=== PATIENT | male | born 1975 | race American Indian/Alaskan Native ===

== ENCOUNTER 2019-08-02 18:27 | Emergency (ER) | payer OTHER ==
--- NOTE | 2019-08-02 18:44 | EDM.PDOC ---
ED HPI GENERAL MEDICAL PROBLEM - General Stated Complaint: WISDOM TOOTH BOTTOM PAIN Time Seen by Provider: 08/02/19 18:39 Source of Information: Reports: Patient History Limitations: Reports: No Limitations - History of Present Illness INITIAL COMMENTS - FREE TEXT/NARRATIVE: This 44 yo male patient reports to the ED with dental pain that started 3 days ago and has been getting worse. The patient has been taking Tylenol an ibuprofen with little to no relief. The patient has attempted to get into the dentist, but has not been able to get an appointment. Onset Date: 07/31/19 Duration: Constant, Getting Worse Location: Reports: Face Quality: Reports: Ache Severity: Moderate Improves with: Reports: None Worsens with: Reports: None Context: Reports: Other Associated Symptoms: Reports: No Other Symptoms Treatments PAYMENT POSTER: Reports: Acetaminophen, NSAIDS Left Lower Gums Pain Score (Numeric/FACES): 10 - Related Data Allergies Allergy/AdvReac Type Severity Reaction Status Date / Time No Known Allergies Allergy Verified 08/02/19 18:37 Home Meds: Home Meds . [No Known Home Meds] 08/02/19 [History] ED ROS ENT - Review of Systems Review Of Systems: Comprehensive ROS is negative, except as noted in HPI. ED EXAM, ENT - Physical Exam Exam: See Below Exam Limited By: No Limitations General Appearance: Alert, WD/WN, No Apparent Distress Eye Exam: Bilateral Eye: EOMI, Normal Inspection, PERRL Ears: Normal External Exam, Normal Canal, Hearing Grossly Normal, Normal TMs Nose: Normal Inspection, Normal Mucousa, No Blood Mouth/Throat: Dental Abcess, Dental Pain Head: Atraumatic, Normocephalic Neck: Normal Inspection, Supple, Non-Tender, Full Range of Motion Respiratory/Chest: No Respiratory Distress, Lungs Clear, Normal Breath Sounds, No Accessory Muscle Use, Chest Non-Tender Cardiovascular: Normal Peripheral Pulses, Regular Rate, Rhythm, No Edema, No Gallop, No JVD, No Murmur, No Rub GI/Abdominal: Normal Bowel Sounds, Soft, Non-Tender, No Organomegaly, No Distention, No Abnormal Bruit, No Mass (Male) Exam: Deferred Rectal (Males) Exam: Deferred Back: Normal Inspection, Full Range of Motion Extremities: Normal Inspection, Normal Range of Motion, Non-Tender, No Pedal Edema, Normal Capillary Refill Neurological: Alert, Oriented, CN II-XII Intact, Normal Cognition, Normal Gait, Normal Reflexes, No Motor/Sensory Deficits Psychiatric: Normal Affect, Normal Mood Skin: Warm, Dry, Intact, Normal Color, No Rash Lymphatic: No Adenopathy Course - Vital Signs Last Recorded V/S: Last Vital Signs Temp 36.5 C 08/02/19 18:34 Pulse 84 08/02/19 18:34 Resp 16 08/02/19 18:34 BP 144/95 H 08/02/19 18:34 Pulse Ox 98 08/02/19 18:34 Departure - Departure Time of Disposition: 18:44 Disposition: Home, Self-Care 01 Condition: Fair Clinical Impression: Dental abscess - Discharge Information *PRESCRIPTION DRUG MONITORING PROGRAM REVIEWED*: Not Applicable *COPY OF PRESCRIPTION DRUG MONITORING REPORT IN PATIENT PILI: Not Applicable Instructions: Dental Abscess, [id number] Care Plan Goals: The patient was advised of the examination results during the visit. The patient was also given a script for Clindamycin (300 mg) to take 1 by mouth 4 times per day for 10 days and Viscous Lidocaine 2% #100 mL to use 5 mL on a cottonball applied to area every 4 hours as needed. The patient was encouraged to follow-up with a dentist early this week for continued evaluation and further management. If the patient has any additional symptoms or concerns, the patient should either follow-up with her primary care facility or return to the emergency department. Sepsis Event Note - Evaluation Sepsis Screening Result: No Definite Risk - Focused Exam Vital Signs: Vital Signs Temp Pulse Resp BP Pulse Ox 08/02/19 18:34 36.5 C 84 16 144/95 H 98 Date Exam was Performed: 08/02/19 Time Exam was Performed: 18:37
== END 2019-08-02 18:49 | disposition home or self-care (01) ==
LOC: DL.ED 18:27
DX: K04.7 Periapical abscess without sinus (principal)
CPT/HCPCS: 99282